=== PATIENT | female | born 1945 | race American Indian/Alaskan Native ===

== ENCOUNTER 2016-10-08 15:34 | Emergency (ER) | payer MEDICARE, BC ==
[2016-10-08 15:40] VITALS: BP 139/75
[2016-10-08] MEDS ORDERED: Codeine/Promethazine 10-6.25 MG/5 ML Syrup 5 ML UD Cup PO ONE (15:55)
[2016-10-08] MEDS ORDERED: predniSONE 20 MG Tab PO ONE (15:56)
--- NOTE | 2016-10-08 16:17 | EDM.PDOC ---
Scribed by Nena Cali 10/08/16 1610 for Geraldo Peralta MD ED HPI ENT - General Chief Complaint: ENT Problem Stated Complaint: cold [id number] Time Seen by Provider: 10/08/16 15:50 Source of Information: Reports: Patient, RN, RN notes reviewed History Limitations: Reports: No limitations - History of Present Illness INITIAL COMMENTS - FREE TEXT/NARRATIVE: Patient presents with 3 day history of cough. She states that she was gardening and developed symptoms afterwards. She took some allergy medication over-the- counter and some Aleve. Denies any fevers. No respiratory history of COPD or asthma. Severity: mild Improves with: Reports: None Worsens with: Reports: None Associated Symptoms: Reports: no other symptoms - Related Data Allergies/ADRs: Allergies Allergy/AdvReac Type Severity Reaction Status Date / Time acetaminophen [From Percocet] Allergy Cannot Verified 10/08/16 15:40 Remember oxycodone HCl [From Percocet] Allergy Cannot Verified 10/08/16 15:40 Remember Penicillins Allergy Cannot Verified 10/08/16 15:40 Remember Home Meds: Home Meds Aspirin [Ecotrin] 81 mg PO DAILY 02/03/16 [History] Calcium Carbonate/Vitamin D3 [Oyster Shell 500-Vit D3 200 Tb] 1 tab PO DAILY 06/19 [History] DULoxetine [Cymbalta] 60 mg PO BID 02/03/16 [History] Fish Oil/[place]-3 Fatty Acids [Fish Oil 1,000 MG] 1 gr PO DAILY 02/03/16 [History ] QUEtiapine Fumarate [Quetiapine Fumarate] 25 mg PO BEDTIME 02/03/16 [History] clonazePAM [Clonazepam] 0.5 mg PO PRN 02/03/16 [History] levETIRAcetam [Keppra] 250 mg PO BID 02/03/16 [History] Past Medical History HEENT History: Reports: Impaired vision Cardiovascular History: Reports: None Respiratory History: Reports: None Gastrointestinal History: Reports: Cholelithiasis Genitourinary History: Reports: None 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 Musculoskeletal History: Reports: None Other Musculoskeletal History: repair of broken left patella, collar bone repair , right hand fracture Neurological History: Reports: None Other Neuro History: Cranial shunt for 23 years Psychiatric History: Reports: None Endocrine/Metabolic History: Reports: None Hematologic History: Reports: None Immunologic History: Reports: None Oncologic (Cancer) History: Reports: None Dermatologic History: Reports: None - Infectious Disease History Infectious Disease History: Reports: None - Past Surgical History Head Surgeries/Procedures: Reports: None, Shunt Social & Family History - Family History Family Medical History: Noncontributory - Tobacco Use Smoking Status *Q: Former Smoker Used Tobacco, but Quit: Yes Month Tobacco Last Used: ? Second Hand Smoke Exposure: No - Caffeine Use Caffeine Use: Reports: Coffee, Tea - Alcohol Use Number of Drinks Per Day: 1 - Recreational Drug Use Recreational Drug Use: No - Living Situation & Occupation Living situation: Reports: , alone Occupation: employed ED ROS ENT - Review of Systems Review Of Systems: ROS reveals no pertinent complaints other than HPI. ED EXAM, ENT - Physical Exam Exam: See Below Exam Limited By: No limitations General Appearance: alert, WD/WN, no apparent distress Eye Exam: bilateral eye: normal inspection Ears: normal external exam, normal canal, hearing grossly normal, normal TMs Nose: normal inspection, normal mucousa, no blood Mouth/Throat: Normal inspection, Normal gums, Normal lips, Normal oropharynx, Normal teeth Head: atraumatic, normocephalic Neck: normal inspection, supple, non-tender, full range of motion Respiratory/Chest: other (cough with clear lung sounds.) Cardiovascular: normal peripheral pulses, regular rate, rhythm, no edema, no gallop, no JVD, no murmur, no rub GI/Abdominal: soft, non tender Back: normal inspection, full range of motion Extremities: normal inspection, normal range of motion, non-tender, no pedal edema, normal capillary refill Neurological: alert, oriented, CN II-XII intact, normal cognition, normal gait, normal reflexes, no motor/sensory deficits Psychiatric: normal affect, normal mood Skin: Warm, Dry, Intact, Normal color, No rash Lymphatic: no adenopathy Course - Vital Signs Last Recorded V/S: Last Vital Signs Temp 36.3 C 10/08/16 15:38 Pulse 71 10/08/16 15:38 Resp 16 10/08/16 15:38 BP 139/75 10/08/16 15:38 Pulse Ox 97 10/08/16 15:38 - Orders/Labs/Meds Meds: Medications Discontinued Medications Generic Name Dose Route Start Last Admin Trade Name Eric PRN Reason Stop Dose Admin Prednisone 40 mg 10/08/16 15:56 10/08/16 16:00 Prednisone PO 10/08/16 15:57 40 mg ONETIME ONE Administration Promethazine HCl/Codeine 5 ml 10/08/16 15:55 10/08/16 16:01 Phenergan With Codeine PO 10/08/16 15:56 Not Given ONETIME ONE Departure - Departure Time of Disposition: 16:08 Disposition: Home, Self-Care 01 Condition: good Clinical Impression: Bronchitis Instructions: Acute Bronchitis, [id number] Forms: ED Department Discharge Additional Instructions: Prednisone 40mg. per day for a total of 5 days. [id number] cough medication, Delsym 12 hour. If symptoms persist after a total of 10 days of symptoms, call PCP. No antibiotics at this time. This was discussed with the patient. Patient in agreement with plan. I have read and agree with the documentation that has been completed regarding this visit. By signing this record, I attest that the documentation was completed in my physical presence and is an accurate record of the encounter.
== END 2016-10-08 16:11 | disposition home or self-care (01) ==
LOC: DL.ED 15:34
DX: J40 Bronchitis, not specified as acute or chronic (principal); Z88.0 Allergy status to penicillin; Z88.6 Allergy status to analgesic agent; Z79.82 Long term (current) use of aspirin; Z79.899 Other long term (current) drug therapy; Z87.891 Personal history of nicotine dependence
CPT/HCPCS: 99283; A9270

== ENCOUNTER 2017-02-10 09:37 | Emergency (ER) | payer MEDICARE, BC ==
[2017-02-10 09:51] VITALS: BP 119/86
[2017-02-10] MEDS ORDERED: Ketorolac 30 MG/ML SDV IM ONE (10:37)
--- NOTE | 2017-02-10 10:58 | EDM.PDOC ---
ED HPI GENERAL MEDICAL PROBLEM - General Chief Complaint: Lower Extremity Injury/Pain Stated Complaint: BURSITIS, HIP AND BACK Time Seen by Provider: 02/10/17 10:00 Source of Information: Reports: Patient History Limitations: Reports: No Limitations - History of Present Illness INITIAL COMMENTS - FREE TEXT/NARRATIVE: Patient presents to the ER with c/o left hip pain. She states she had a cortisone injection on SundayFeb 02. She was told it would take 2 weeks for the injection to take effect. She continues to have pain in the left hip. She has not had any new injury or falls. She denies any other pain or problems. She is unsure of what she has been taking (acetaminophen or ibuprofen). 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: Acetaminophen, NSAIDS Left Hip Pain Score (Numeric/FACES): 10 - Related Data Allergies Allergy/AdvReac Type Severity Reaction Status Date / Time acetaminophen [From Percocet] Allergy Cannot Verified 10/08/16 15:40 Remember oxycodone HCl [From Percocet] Allergy Cannot Verified 10/08/16 15:40 Remember Penicillins Allergy Cannot Verified 10/08/16 15:40 Remember Home Meds: Home Meds Aspirin [Ecotrin] 81 mg PO DAILY 02/03/16 [History] Calcium Carbonate/Vitamin D3 [Oyster Shell 500-Vit D3 200 Tb] 1 tab PO DAILY 06/19 [History] DULoxetine [Cymbalta] 60 mg PO BID 02/03/16 [History] Fish Oil/[place]-3 Fatty Acids [Fish Oil 1,000 MG] 1 gr PO DAILY 02/03/16 [History ] QUEtiapine Fumarate [Quetiapine Fumarate] 25 mg PO BEDTIME 02/03/16 [History] clonazePAM [Clonazepam] 0.5 mg PO PRN 02/03/16 [History] Past Medical History HEENT History: Reports: Impaired Vision Cardiovascular History: Reports: None Respiratory History: Reports: None Gastrointestinal History: Reports: Cholelithiasis Genitourinary History: Reports: None 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 Musculoskeletal History: Reports: None Other Musculoskeletal History: repair of broken left patella, collar bone repair , right hand fracture Neurological History: Reports: None Other Neuro History: Cranial shunt for 23 years Psychiatric History: Reports: Depression Endocrine/Metabolic History: Reports: None Hematologic History: Reports: None Immunologic History: Reports: None Oncologic (Cancer) History: Reports: None Dermatologic History: Reports: None - Infectious Disease History Infectious Disease History: Reports: None - Past Surgical History Head Surgeries/Procedures: Reports: Shunt Social & Family History - Family History Family Medical History: Noncontributory - Tobacco Use Smoking Status *Q: Former Smoker Used Tobacco, but Quit: Yes Month Tobacco Last Used: ? Second Hand Smoke Exposure: No - Caffeine Use Caffeine Use: Reports: Coffee, Tea - Alcohol Use Number of Drinks Per Day: 1 - Recreational Drug Use Recreational Drug Use: No - Living Situation & Occupation Living situation: Reports: , Alone Occupation: Employed Review of Systems - Review of Systems Review Of Systems: ROS reveals no pertinent complaints other than HPI. ED EXAM, GENERAL - Physical Exam Exam: See Below Exam Limited By: No Limitations General Appearance: Alert, WD/WN, No Apparent Distress Nose: Normal Inspection Throat/Mouth: Normal Inspection Head: Atraumatic, Normocephalic Neck: Normal Inspection Respiratory/Chest: No Respiratory Distress, Lungs Clear, Normal Breath Sounds, No Accessory Muscle Use, Chest Non-Tender Cardiovascular: Normal Peripheral Pulses, Regular Rate, Rhythm, No Edema, No Gallop, No JVD, No Murmur, No Rub Peripheral Pulses: 2+: Dorsalis Pedis (L), Dorsalis Pedis (R) GI/Abdominal: Normal Bowel Sounds, Soft, Non-Tender (Female) Exam: Deferred Rectal (Female) Exam: Deferred Back Exam: Normal Inspection, Full Range of Motion Extremities: Normal Inspection, Leg Pain, Limited Range of Motion Neurological: Alert, Oriented Psychiatric: Normal Affect, Normal Mood Skin Exam: Warm, Dry, Intact, Normal Color, No Rash Lymphatic: No Adenopathy Course - Vital Signs Last Recorded V/S: Last Vital Signs Temp 98.2 F 02/10/17 09:47 Pulse 68 02/10/17 09:47 Resp 16 02/10/17 09:47 BP 119/86 02/10/17 09:47 Pulse Ox 100 02/10/17 09:47 - Orders/Labs/Meds Orders: Active Orders 24 hr Category Date Time Status Orphenadrine [Norflex] Med 02/10/17 10:45 Active 60 mg IM Q12H Medication Orders Orphenadrine Citrate (Norflex) 60 mg IM Q12H DARREN Last Admin: 02/10/17 10:47 Dose: 60 mg Meds: Medications Generic Name Dose Route Start Last Admin Trade Name Eric PRN Reason Stop Dose Admin Orphenadrine Citrate 60 mg 02/10/17 10:45 02/10/17 10:47 Norflex IM 60 mg Q12H DARREN Administration Discontinued Medications Generic Name Dose Route Start Last Admin Trade Name Eric PRN Reason Stop Dose Admin Ketorolac Tromethamine 60 mg 02/10/17 10:37 02/10/17 10:47 Toradol IM 02/10/17 10:38 60 mg ONETIME ONE Administration Departure - Departure Time of Disposition: 10:55 Disposition: Home, Self-Care 01 Condition: Good Clinical Impression: Hip pain, chronic Qualifiers: Laterality: left Qualified Code(s): M25.552 - Pain in left hip - Discharge Information Instructions: Hip Pain Forms: ED Department Discharge Additional Instructions: Cyclobenzaprine 10mg : 1 tablet orally every 8 hours as needed for muscle spasms Diclofenac 18m tablet every 6 hours orally as needed for pain. Do NOT take IBUPROFEN while taking Diclofenac May take Tylenol (ACETAMINOPHEN) 650mg orally every 4 hours as needed for pain. Follow up with your primary care provider next week for further management. - My Orders Last 24 Hours: My Active Orders 02/10/17 10:45 Orphenadrine [Norflex] 60 mg IM Q12H - Assessment/Plan Last 24 Hours: My Active Orders 02/10/17 10:45 Orphenadrine [Norflex] 60 mg IM Q12H
== END 2017-02-10 11:00 | disposition home or self-care (01) ==
LOC: DL.ED 09:37
DX: M25.552 Pain in left hip (principal); F32.9 Major depressive disorder, single episode, unspecified; Z98.890 Other specified postprocedural states; Z98.2 Presence of cerebrospinal fluid drainage device; Z87.891 Personal history of nicotine dependence; Z79.82 Long term (current) use of aspirin; Z88.0 Allergy status to penicillin; Z88.6 Allergy status to analgesic agent
CPT/HCPCS: 96372; 99283; J1885; J2360

== ENCOUNTER 2017-02-15 23:16 | Emergency (ER) | payer MEDICARE, BC ==
[2017-02-15] MEDS ORDERED: Acetaminophen/HYDROcodone 325-10 MG Tab PO ONE (23:17)
--- NOTE | 2017-02-15 23:58 | EDM.PDOC ---
ED HPI GENERAL MEDICAL PROBLEM - General Chief Complaint: Lower Extremity Injury/Pain Stated Complaint: HIP PAIN THRU LEG Time Seen by Provider: 02/15/17 23:50 Source of Information: Reports: Patient History Limitations: Reports: No Limitations - History of Present Illness INITIAL COMMENTS - FREE TEXT/NARRATIVE: increasing and different pain to left hip. Pain started 4 weeks ago after working in yard on uneven hilly ground. No other injury noted. Pain initially diagnosed as bursitits and given steroid injectio 2 weeks ago, has not helped, pain worsening today rates 30/10. unable to sleep. Was seen in clinic today and given zanaflex and mobic. Describes pain as being different more in groin and radiation down thigh and knee, worse with movment. Onset: Other (one month ) Left Hip Pain Score (Numeric/FACES): 10 - Related Data Allergies Allergy/AdvReac Type Severity Reaction Status Date / Time acetaminophen [From Percocet] Allergy Cannot Verified 02/15/17 23:26 Remember oxycodone HCl [From Percocet] Allergy Cannot Verified 02/15/17 23:26 Remember Penicillins Allergy Cannot Verified 02/15/17 23:26 Remember propoxyphene Allergy Cannot Verified 02/15/17 23:26 Remember Home Meds: Home Meds Aspirin [Ecotrin] 81 mg PO DAILY 02/03/16 [History] Calcium Carbonate/Vitamin D3 [Oyster Shell 500-Vit D3 200 Tb] 1 tab PO DAILY 06/19 [History] DULoxetine [Cymbalta] 60 mg PO DAILY 02/03/16 [History] Fish Oil/[place]-3 Fatty Acids [Fish Oil 1,000 MG] 1 g PO DAILY 02/03/16 [History] QUEtiapine Fumarate [Quetiapine Fumarate] 25 mg PO BID 02/03/16 [History] Acetaminophen 500 mg PO BID PRN 02/15/17 [History] Cholecalciferol (Vitamin D3) [Vitamin D] 2,000 unit PO DAILY 02/15/17 [History] Clindamycin HCl [Cleocin] 150 mg PO ASDIRECTED 02/15/17 [History] Cyanocobalamin (Vitamin B-12) [Vitamin B-12] 1,000 mcg PO DAILY 02/15/17 [ History] Ferrous Sulfate 325 mg PO BID 02/15/17 [History] Green Tea [place] Extract [Green Tea] 2 tab PO DAILY 02/15/17 [History] Lactulose 15 ml PO DAILY PRN 02/15/17 [History] Meloxicam [Mobic] 7.5 mg PO BID 02/15/17 [History] Multivitamin [Onl-Yefein-Nhxrj] 1 each PO DAILY 02/15/17 [History] tiZANidine [Zanaflex] 4 mg PO TID 02/15/17 [History] Past Medical History HEENT History: Reports: Impaired Vision Cardiovascular History: Reports: None Respiratory History: Reports: None Gastrointestinal History: Reports: Cholelithiasis, Chronic Constipation Genitourinary History: Reports: None 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 Musculoskeletal History: Reports: Fibromyalgia, Other (See Below) Other Musculoskeletal History: repair of broken left patella, collar bone repair , right hand fracture Neurological History: Reports: Other (See Below) Other Neuro History: Cranial shunt Psychiatric History: Reports: Depression Endocrine/Metabolic History: Reports: None Hematologic History: Reports: None Immunologic History: Reports: None Oncologic (Cancer) History: Reports: None Dermatologic History: Reports: None - Infectious Disease History Infectious Disease History: Reports: Chicken Pox - Past Surgical History Head Surgeries/Procedures: Reports: Shunt Cardiovascular Surgical History: Reports: None Respiratory Surgical History: Reports: None Female Surgical History: Reports: None Social & Family History - Family History Family Medical History: Noncontributory - Tobacco Use Smoking Status *Q: Former Smoker Used Tobacco, but Quit: Yes Month Tobacco Last Used: 1984 Second Hand Smoke Exposure: No - Caffeine Use Caffeine Use: Reports: Coffee, Soda, Tea - Alcohol Use Number of Drinks Per Day: 1 - Recreational Drug Use Recreational Drug Use: No - Living Situation & Occupation Living situation: Reports: , Alone Occupation: Employed Review of Systems - Review of Systems Review Of Systems: ROS reveals no pertinent complaints other than HPI. ED EXAM, GENERAL - Physical Exam Exam: See Below Exam Limited By: No Limitations General Appearance: Alert, Moderate Distress Eye Exam: Bilateral Eye: EOMI, PERRL Ears: Normal External Exam Nose: Normal Inspection Throat/Mouth: Normal Inspection, Normal Lips Neck: Normal Inspection, Full Range of Motion Respiratory/Chest: No Respiratory Distress, Lungs Clear, Normal Breath Sounds Cardiovascular: Normal Peripheral Pulses, Regular Rate, Rhythm GI/Abdominal: Normal Bowel Sounds, Soft Back Exam: Normal Inspection. No: CVA Tenderness (L), CVA Tenderness (R), Decreased Range of Motion Extremities: No Pedal Edema, Leg Pain (left hip with groin and buttock pain, with movment, tender with palpation.). No: Normal Range of Motion, Pedal Edema Neurological: Alert, Oriented, Normal Cognition. No: Normal Gait (ambulate with cane) Psychiatric: Anxious Skin Exam: Warm, Dry, Intact, Normal Color Course - Vital Signs Last Recorded V/S: Last Vital Signs Temp 96.9 F 02/15/17 23:29 Pulse 65 02/16/17 00:24 Resp 16 02/16/17 00:24 BP 143/78 H 02/16/17 00:24 Pulse Ox 99 02/16/17 00:24 - Orders/Labs/Meds Orders: Active Orders 24 hr Category Date Time Status Ondansetron [Zofran ODT] Med 02/16/17 00:26 Active 4 mg PO ONETIME PRN Medication Orders Ondansetron HCl (Zofran Odt) 4 mg PO ONETIME PRN PRN Reason: nausea Stop: 02/16/17 02:30 Meds: Medications Generic Name Dose Route Start Last Admin Trade Name Freq PRN Reason Stop Dose Admin Ondansetron HCl 4 mg 02/16/17 00:26 Zofran Odt PO 02/16/17 02:30 ONETIME PRN nausea Discontinued Medications Generic Name Dose Route Start Last Admin Trade Name Freq PRN Reason Stop Dose Admin Hydrocodone Bitart/Acetaminophen 1 tab 02/16/17 00:17 02/16/17 00:22 [place] 325-10 Mg PO 02/16/17 00:18 1 tab ONETIME ONE Administration Morphine Sulfate 2 mg 02/16/17 01:11 Morphine IM 02/16/17 01:12 ONETIME ONE - Radiology Interpretation Free Text/Narrative:: Xray knee negative CT pelvis, no hip fx, bilateral osteoarthritis greater on left. Departure - Departure Time of Disposition: 01:15 Disposition: Home, Self-Care 01 Condition: Fair Clinical Impression: Left hip pain - Discharge Information Instructions: Hip Pain Forms: ED Department Discharge Additional Instructions: follow up with primary care in am continue with home medications hydrocodone 10/325 one every 6 hours as needed for severe pain #2 - My Orders Last 24 Hours: My Active Orders 02/16/17 00:26 Ondansetron [Zofran ODT] 4 mg PO ONETIME PRN - Assessment/Plan Last 24 Hours: My Active Orders 02/16/17 00:26 Ondansetron [Zofran ODT] 4 mg PO ONETIME PRN
[2017-02-16] MEDS ORDERED: Acetaminophen/HYDROcodone 325-10 MG Tab PO ONE (00:17)
[2017-02-16] MEDS ORDERED: Ondansetron 4 MG Tab.DIS PO PRN (00:26)
[2017-02-16] MEDS ORDERED: Morphine 2 MG/ML Syringe IM ONE (01:11)
[2017-02-16] MEDS ORDERED: Acetaminophen/HYDROcodone 325-10 MG Tab ONE (01:22)
[2017-02-16 01:39] VITALS: BP 164/75
== END 2017-02-16 01:32 | disposition home or self-care (01) ==
LOC: DL.ED 23:16
DX: M25.552 Pain in left hip (principal); H54.7 Unspecified visual loss; F32.9 Major depressive disorder, single episode, unspecified; Z87.891 Personal history of nicotine dependence; Z88.0 Allergy status to penicillin; Z88.8 Allergy status to other drugs, medicaments and biological substances; Z88.6 Allergy status to analgesic agent; Z79.82 Long term (current) use of aspirin; Z79.899 Other long term (current) drug therapy
CPT/HCPCS: 72192; 73560; 96372; 99284; A9270; J2270

== ENCOUNTER 2017-02-18 08:32 | Emergency (ER) | payer MEDICARE, BC ==
[2017-02-18 08:47] VITALS: BP 132/73
[2017-02-18] MEDS ORDERED: HYDROmorphone 1 MG/ML Syringe IM ONE (09:08)
--- NOTE | 2017-02-18 09:11 | EDM.PDOC ---
ED HPI GENERAL MEDICAL PROBLEM - General Chief Complaint: Lower Extremity Injury/Pain Stated Complaint: THROBBING PAIN 3RD VISIT Time Seen by Provider: 02/18/17 09:08 Source of Information: Reports: Patient History Limitations: Reports: No Limitations - History of Present Illness INITIAL COMMENTS - FREE TEXT/NARRATIVE: 71 yo white female c/o left side hip pain. Pt. seen in this ED 02/15/[address] of hips show Bilat DJD worse on left. Pt. states the Mobic and Muscle relaxants not helping. Onset Date: 02/13/17 Onset Time: 14:00 Duration: Day(s): Location: Reports: Lower Extremity, Left Quality: Reports: Ache Improves with: Reports: None Worsens with: Reports: None Context: Reports: Other (arthritis) Associated Symptoms: Reports: No Other Symptoms Left Leg Pain Score (Numeric/FACES): 10 - Related Data Allergies Allergy/AdvReac Type Severity Reaction Status Date / Time acetaminophen [From Percocet] Allergy Cannot Verified 02/15/17 23:26 Remember oxycodone HCl [From Percocet] Allergy Cannot Verified 02/18/17 08:47 Remember Penicillins Allergy Cannot Verified 02/18/17 08:47 Remember propoxyphene Allergy Cannot Verified 02/18/17 08:47 Remember Home Meds: Home Meds Aspirin [Ecotrin] 81 mg PO DAILY 02/03/16 [History] Calcium Carbonate/Vitamin D3 [Oyster Shell 500-Vit D3 200 Tb] 1 tab PO DAILY 06/19 [History] DULoxetine [Cymbalta] 60 mg PO DAILY 02/03/16 [History] Fish Oil/[place]-3 Fatty Acids [Fish Oil 1,000 MG] 1 g PO DAILY 02/03/16 [History] QUEtiapine Fumarate [Quetiapine Fumarate] 25 mg PO BID 02/03/16 [History] Acetaminophen 500 mg PO BID PRN 02/15/17 [History] Cholecalciferol (Vitamin D3) [Vitamin D] 2,000 unit PO DAILY 02/15/17 [History] Clindamycin HCl [Cleocin] 150 mg PO ASDIRECTED 02/15/17 [History] Cyanocobalamin (Vitamin B-12) [Vitamin B-12] 1,000 mcg PO DAILY 02/15/17 [ History] Ferrous Sulfate 325 mg PO BID 02/15/17 [History] Green Tea [place] Extract [Green Tea] 2 tab PO DAILY 02/15/17 [History] Lactulose 15 ml PO DAILY PRN 02/15/17 [History] Meloxicam [Mobic] 7.5 mg PO BID 02/15/17 [History] Multivitamin [Php-[place]wc[place]-Npnfq] 1 each PO DAILY 02/15/17 [History] tiZANidine [Zanaflex] 4 mg PO TID 02/15/17 [History] Past Medical History HEENT History: Reports: Impaired Vision Cardiovascular History: Reports: None Respiratory History: Reports: None Gastrointestinal History: Reports: Cholelithiasis, Chronic Constipation Genitourinary History: Reports: None 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 Musculoskeletal History: Reports: Fibromyalgia, Other (See Below) Other Musculoskeletal History: repair of broken left patella, collar bone repair , right hand fracture Neurological History: Reports: Other (See Below) Other Neuro History: Cranial shunt Psychiatric History: Reports: Depression Endocrine/Metabolic History: Reports: None Hematologic History: Reports: None Immunologic History: Reports: None Oncologic (Cancer) History: Reports: None Dermatologic History: Reports: None - Infectious Disease History Infectious Disease History: Reports: Chicken Pox - Past Surgical History Head Surgeries/Procedures: Reports: Shunt Cardiovascular Surgical History: Reports: None Respiratory Surgical History: Reports: None Female Surgical History: Reports: None Social & Family History - Family History Family Medical History: Noncontributory - Tobacco Use Smoking Status *Q: Never Smoker Used Tobacco, but Quit: Yes Month Tobacco Last Used: 1984 Second Hand Smoke Exposure: No - Caffeine Use Caffeine Use: Reports: Coffee, Tea - Alcohol Use Number of Drinks Per Day: 1 - Recreational Drug Use Recreational Drug Use: No - Living Situation & Occupation Living situation: Reports: , Alone Occupation: Employed Review of Systems - Review of Systems Review Of Systems: See Below Constitutional: Reports: No Symptoms Eyes: Reports: No Symptoms Ears: Reports: No Symptoms Nose: Reports: No Symptoms Mouth/Throat: Reports: No Symptoms Respiratory: Reports: No Symptoms Cardiovascular: Reports: No Symptoms GI/Abdominal: Reports: No Symptoms Genitourinary: Reports: No Symptoms Musculoskeletal: Reports: Joint Pain (left hip) Skin: Reports: No Symptoms Neurological: Reports: No Symptoms Psychiatric: Reports: No Symptoms ED EXAM, GENERAL - Physical Exam Exam: See Below Exam Limited By: No Limitations General Appearance: Alert, WD/WN, No Apparent Distress Eye Exam: Bilateral Eye: PERRL Ears: Normal External Exam Nose: Normal Inspection Throat/Mouth: Normal Inspection Head: Atraumatic Neck: Normal Inspection, Tender Lateral Respiratory/Chest: Lungs Clear Cardiovascular: Normal Peripheral Pulses GI/Abdominal: Normal Bowel Sounds, Soft Back Exam: Normal Inspection, Full Range of Motion Extremities: Other (left hip tenderness) Neurological: Alert, Oriented, CN II-XII Intact Psychiatric: Normal Affect, Normal Mood Skin Exam: Warm, Dry, Intact Lymphatic: No Adenopathy Course - Vital Signs Last Recorded V/S: Last Vital Signs Temp 35.8 C 02/18/17 08:37 Pulse 81 02/18/17 08:37 Resp 20 02/18/17 08:37 BP 132/73 02/18/17 08:37 Pulse Ox 100 02/18/17 08:37 Departure - Departure Time of Disposition: 09:14 Disposition: Home, Self-Care 01 Condition: Good Clinical Impression: Degenerative joint disease (DJD) of hip Qualifiers: Osteoarthritis type: primary Laterality: bilateral Qualified Code(s): M16.0 - Bilateral primary osteoarthritis of hip - Discharge Information Instructions: Hip Pain Additional Instructions: Rest Moist Heat to hips TID X 15 mins. Take pain medication as prescribed: TRAMADOL 50mg TID # 15 Continue w/ present medication F/U w/ PCP for re-evaluation and possible Orthopedic Evaluation.
== END 2017-02-18 09:40 | disposition home or self-care (01) ==
LOC: DL.ED 08:32
DX: M16.0 Bilateral primary osteoarthritis of hip (principal); F32.9 Major depressive disorder, single episode, unspecified; Z87.891 Personal history of nicotine dependence; Z98.890 Other specified postprocedural states; Z79.899 Other long term (current) drug therapy; Z79.82 Long term (current) use of aspirin; Z88.0 Allergy status to penicillin; Z88.6 Allergy status to analgesic agent; Z88.8 Allergy status to other drugs, medicaments and biological substances
CPT/HCPCS: 96372; 99283; J1170

== ENCOUNTER 2017-03-04 15:02 | Emergency (ER) | payer MEDICARE, BC ==
[2017-03-04 15:12] VITALS: BP 181/74
[2017-03-04] MEDS ORDERED: Sodium Chloride 0.9% 10 ML Syringe FLUSH PRN (15:24)
[2017-03-04 16:07] LABS: CHLORIDE,CL 104 mmol/L (101-111); SODIUM,NA 141 mmol/L (135-145)
--- NOTE | 2017-03-04 17:15 | EDM.PDOC ---
ED HPI GENERAL MEDICAL PROBLEM - General Chief Complaint: Neurological Problem Stated Complaint: EYES ARE DILATED, CONFUSED, FELL TODAY HAS A SHUNT Time Seen by Provider: 03/04/17 15:11 Source of Information: Reports: Family, RN, RN Notes Reviewed History Limitations: Reports: Altered Mental Status - History of Present Illness INITIAL COMMENTS - FREE TEXT/NARRATIVE: Patient presents to the ER with family. Family states she had an MRI on Sunday at [facility] in [place] for a bulging disc. Family states her existing shunt was checked by a neurosurgeon prior to discharge on Sunday, who stated the shunt was ok. Family reports she has progressively declining mentally throughout the weekend. states she has been quite weak and her short term memory has been declining. He states she has had some falls, once into the bathtub where the water inadvertently got turned on and the drain closed. The came into the house and found her in the tub filled with water. Patient states she thinks it is December. Family states they feel her shunt is occluded. Onset: Gradual Onset Date: 03/03/17 Associated Symptoms: Reports: Confusion - Related Data Allergies Allergy/AdvReac Type Severity Reaction Status Date / Time acetaminophen [From Percocet] Allergy Cannot Verified 02/15/17 23:26 Remember oxycodone HCl [From Percocet] Allergy Cannot Verified 02/18/17 08:47 Remember Penicillins Allergy Cannot Verified 02/18/17 08:47 Remember propoxyphene Allergy Cannot Verified 02/18/17 08:47 Remember Home Meds: Home Meds Aspirin [Ecotrin] 81 mg PO DAILY 02/03/16 [History] Calcium Carbonate/Vitamin D3 [Oyster Shell 500-Vit D3 200 Tb] 1 tab PO DAILY 06/19 [History] DULoxetine [Cymbalta] 60 mg PO DAILY 02/03/16 [History] Fish Oil/[place]-3 Fatty Acids [Fish Oil 1,000 MG] 1 g PO DAILY 02/03/16 [History] Acetaminophen 500 mg PO BID PRN 02/15/17 [History] Cholecalciferol (Vitamin D3) [Vitamin D] 2,000 unit PO DAILY 02/15/17 [History] Cyanocobalamin (Vitamin B-12) [Vitamin B-12] 1,000 mcg PO DAILY 02/15/17 [ History] Ferrous Sulfate 45 mg PO BID 02/15/17 [History] Green Tea [place] Extract [Green Tea] 2 tab PO DAILY 02/15/17 [History] Lactulose 15 ml PO DAILY PRN 02/15/17 [History] Meloxicam [Mobic] 7.5 mg PO BID 02/15/17 [History] Multivitamin [Ccz-Tkxsbq-Phhdy] 1 each PO DAILY 02/15/17 [History] tiZANidine [Zanaflex] 4 mg PO TID 02/15/17 [History] O[place]-3 Acid Ethyl Esters 1 cap PO DAILY 03/04/17 [History] Turmeric Root Extract [Turmeric] 1 tab PO DAILY 03/04/17 [History] Past Medical History HEENT History: Reports: Impaired Vision Cardiovascular History: Reports: None Respiratory History: Reports: None Gastrointestinal History: Reports: Cholelithiasis, Chronic Constipation Genitourinary History: Reports: None 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 Musculoskeletal History: Reports: Fibromyalgia, Other (See Below) Other Musculoskeletal History: repair of broken left patella, collar bone repair , right hand fracture Neurological History: Reports: Migraines, Other (See Below) Other Neuro History: Cranial shunt Psychiatric History: Reports: Depression Endocrine/Metabolic History: Reports: None Hematologic History: Reports: None Immunologic History: Reports: None Oncologic (Cancer) History: Reports: None Dermatologic History: Reports: None - Infectious Disease History Infectious Disease History: Reports: Chicken Pox - Past Surgical History Head Surgeries/Procedures: Reports: Shunt Cardiovascular Surgical History: Reports: None Respiratory Surgical History: Reports: None Female Surgical History: Reports: None Social & Family History - Family History Family Medical History: Noncontributory - Tobacco Use Smoking Status *Q: Never Smoker Used Tobacco, but Quit: Yes Month Tobacco Last Used: 1984 Second Hand Smoke Exposure: No - Caffeine Use Caffeine Use: Reports: None - Alcohol Use Number of Drinks Per Day: 1 - Recreational Drug Use Recreational Drug Use: No - Living Situation & Occupation Living situation: Reports: , Alone Occupation: Employed ED ROS GENERAL - Review of Systems Review Of Systems: ROS reveals no pertinent complaints other than HPI. ED EXAM, NEURO - Physical Exam Exam: See Below Exam Limited By: Altered Mental Status General Appearance: Alert, No Apparent Distress Eye Exam: Bilateral Eye: Normal Inspection, PERRL Ears: Normal External Exam Nose: Normal Inspection, Normal Mucosa, No Blood Throat/Mouth: Normal Inspection, Normal Lips, Normal Teeth, Normal Gums, Normal Oropharynx, Normal Voice, No Airway Compromise Head Exam: Atraumatic, Normocephalic Neck: Normal Inspection, Supple, Non-Tender, Full Range of Motion Respiratory/Chest: No Respiratory Distress, Lungs Clear, Normal Breath Sounds, No Accessory Muscle Use, Chest Non-Tender Cardiovascular: Normal Peripheral Pulses, Regular Rate, Rhythm, No Edema, No Gallop, No JVD, No Murmur, No Rub GI/Abdominal: Normal Bowel Sounds, Soft, Non-Tender, No Organomegaly, No Distention, No Abnormal Bruit, No Mass, Pelvis Stable (Female) Exam: Deferred Rectal (Female) Exam: Deferred Neurological: Alert Back Exam: Normal Inspection Extremities: Normal Inspection, No Pedal Edema, Normal Capillary Refill Psychiatric: Flat Affect Skin Exam: Warm, Dry, Intact, Normal Color, No Rash Course - Vital Signs Last Recorded V/S: Last Vital Signs Temp 95.4 F 03/04/17 15:11 Pulse 86 03/04/17 15:11 Resp 22 H 03/04/17 15:11 BP 181/74 H 03/04/17 15:11 Pulse Ox 100 03/04/17 15:11 - Orders/Labs/Meds Orders: Active Orders 24 hr Category Date Time Status Peripheral IV Care [RC] . DIRECTED Care 03/04/17 15:24 Active Skull Less 4V [CR] Urgent Exams 03/04/17 17:14 Taken UA W/MICROSCOPIC [URIN] Stat Lab 03/04/17 16:43 Ordered Sodium Chloride 0.9% [Saline Flush] Med 03/04/17 15:24 Active 10 ml FLUSH ASDIRECTED PRN Peripheral IV Insertion Adult [OM.PC] Stat Oth 03/04/17 15:23 Ordered Medication Orders Sodium Chloride (Saline Flush) 10 ml FLUSH ASDIRECTED PRN PRN Reason: Keep Vein Open Last Admin: 03/04/17 15:40 Dose: 10 ml Labs: Laboratory Tests 03/04/17 03/04/17 03/04/17 Range/Units 15:37 15:37 15:37 WBC 8.2 (5.0-10.0) 10^3/uL RBC 4.72 (4.2-5.4) 10^6/uL Hgb 13.6 (12.0-16.0) g/dL Hct 42.7 (37.0-47.0) % MCV 90.5 D (80-100) fL MCH 28.8 (27.0-34.0) pg MCHC 31.9 L (33.0-35.0) g/dL Plt Count 369 (150-450) 10^3/uL Neut % (Auto) 81.8 H (42.2-75.2) % Lymph % (Auto) 12.8 L (20.5-50.1) % Potter % (Auto) 4.4 (2-8) % Eos % (Auto) 0.6 L (1.0-3.0) % Baso % (Auto) 0.4 (0.0-1.0) % Sodium 141 (135-145) mmol/L Potassium 3.7 (3.6-5.0) mmol/L Chloride 104 (101-111) mmol/L Carbon Dioxide 26.0 (21.0-31.0) mmol/L Anion Gap 14.7 BUN 16 (7-18) mg/dL Creatinine 0.8 (0.6-1.3) mg/dL Est Cr Clr Drug Dosing 62.13 mL/min Estimated GFR (MDRD) > 60 BUN/Creatinine Ratio 20.00 Glucose 151 H (74-105) mg/dL Calcium 9.1 (8.4-10.2) mg/dl Total Bilirubin 0.9 (0.2-1.0) mg/dL AST 30 (10-42) IU/L ALT 17 (10-60) IU/L Alkaline Phosphatase 48 (42-121) IU/L Ammonia 14 (11-35) umol/L Total Protein 6.6 L (6.7-8.2) g/dl Albumin 4.1 (3.2-5.5) g/dl Globulin 2.5 Albumin/Globulin Ratio 1.64 Meds: Medications Generic Name Dose Route Start Last Admin Trade Name Freq PRN Reason Stop Dose Admin Sodium Chloride 10 ml 03/04/17 15:24 03/04/17 15:40 Saline Flush FLUSH 10 ml ASDIRECTED PRN Administration Keep Vein Open - Re-Assessments/Exams Free Text/Narrative Re-Assessment/Exam: 03/04/17 18:10 Family states that the shunt was placed at [facility] in [place] in 2013. Family would prefer for the patient to go back there. [facility] was contacted and provider talked to Dr. Wen. Dr. Wen states that he feels the shunt is occluded or "set too high". He does feel that the patient needs to be transferred to the nearest facility as quickly as possible. An immediate call was placed to [facility] and the provider talked to Dr. Collins, Neurosurgeon. This is the neurosurgeon who physically saw the patient on Sunday03/02/17 prior to discharge from [facility]. He states that the story is not consistent, or making sense. He states this was checked on Sunday and the shunt was fine. He states the patient needs to be transferred to the neurosurgeon who originally placed the shunt. Another immediate phone call was made back to Dr. Wen at [facility] who kindly accepted the patient. He requested that the patient be flown there, as well as a shunt series xrays to be done. Flight team was notified allie and the patient will be transferred per fixed wing to [facility]. 03/04/17 18:16 Departure - Departure Time of Disposition: 17:11 Disposition: DC/Tfer to Acute Hospital 02 Condition: Critical Clinical Impression: Hydrocephalus Altered mental status Qualifiers: Altered mental status type: unspecified Qualified Code(s): R41.82 - Altered mental status, unspecified - Discharge Information Referrals: Safia Carbajal MD [Primary Care Provider] - Forms: ED Department Discharge, Interfacility Transfer EMTALA - My Orders Last 24 Hours: My Active Orders 03/04/17 15:23 Peripheral IV Insertion Adult [OM.PC] Stat 03/04/17 15:24 Peripheral IV Care [RC] . DIRECTED Sodium Chloride 0.9% [Saline Flush] 10 ml FLUSH ASDIRECTED PRN 03/04/17 16:43 UA W/MICROSCOPIC [URIN] Stat 03/04/17 17:14 Skull Less 4V [CR] Urgent - Assessment/Plan Last 24 Hours: My Active Orders 03/04/17 15:23 Peripheral IV Insertion Adult [OM.PC] Stat 03/04/17 15:24 Peripheral IV Care [RC] . DIRECTED Sodium Chloride 0.9% [Saline Flush] 10 ml FLUSH ASDIRECTED PRN 03/04/17 16:43 UA W/MICROSCOPIC [URIN] Stat 03/04/17 17:14 Skull Less 4V [CR] Urgent
== END 2017-03-04 17:55 ==
LOC: DL.ED 15:02
DX: R41.82 Altered mental status, unspecified (principal); G91.9 Hydrocephalus, unspecified; F32.9 Major depressive disorder, single episode, unspecified; Z98.2 Presence of cerebrospinal fluid drainage device; Z87.891 Personal history of nicotine dependence; Z79.82 Long term (current) use of aspirin; Z79.899 Other long term (current) drug therapy; Z88.0 Allergy status to penicillin; Z88.6 Allergy status to analgesic agent; Z88.8 Allergy status to other drugs, medicaments and biological substances
CPT/HCPCS: 36415; 70250; 70450; 80053; 82140; 85025; 99285; J7050; 99284

== ENCOUNTER 2017-03-10 03:43 | Emergency (ER) | payer MEDICARE, BC ==
[2017-03-10 04:23] VITALS: BP 104/46
[2017-03-10] MEDS ORDERED: Ondansetron 4 MG Tab.DIS PO ONE (04:47)
[2017-03-10] MEDS ORDERED: Morphine 2 MG/ML Syringe IM ONE (04:47)
--- NOTE | 2017-03-10 05:23 | EDM.PDOC ---
ED HPI GENERAL MEDICAL PROBLEM - General Chief Complaint: Back Pain or Injury Stated Complaint: BACK PAIN? Time Seen by Provider: 03/10/17 04:00 Source of Information: Reports: Patient, Family History Limitations: Reports: No Limitations - History of Present Illness INITIAL COMMENTS - FREE TEXT/NARRATIVE: Ed via wheelchair with complaint of severe back pain unrelieved with hydrocodone. Admits increased back pain over past month and has appointment end of month for consultation with neurosurgeon today twisted getting out of shower and increased discomfort in low back and now to left groin. No numbess or tingling sensation. Feels like back is going to fold in half. No bowel or bladder incontinence. Left Lower Back Pain Score (Numeric/FACES): 5 - Related Data Allergies Allergy/AdvReac Type Severity Reaction Status Date / Time acetaminophen [From Percocet] Allergy Cannot Verified 03/10/17 04:04 Remember oxycodone HCl [From Percocet] Allergy Cannot Verified 03/10/17 04:04 Remember Penicillins Allergy Cannot Verified 03/10/17 04:04 Remember propoxyphene Allergy Cannot Verified 03/10/17 04:04 Remember Home Meds: Home Meds Aspirin [Ecotrin] 81 mg PO DAILY 02/03/16 [History] Calcium Carbonate/Vitamin D3 [Oyster Shell 500-Vit D3 200 Tb] 1 tab PO DAILY 06/19 [History] DULoxetine [Cymbalta] 60 mg PO DAILY 02/03/16 [History] Fish Oil/[place]-3 Fatty Acids [Fish Oil 1,000 MG] 1 g PO DAILY 02/03/16 [History] Cholecalciferol (Vitamin D3) [Vitamin D] 2,000 unit PO DAILY 02/15/17 [History] Cyanocobalamin (Vitamin B-12) [Vitamin B-12] 1,000 mcg PO DAILY 02/15/17 [ History] Ferrous Sulfate 45 mg PO BID 02/15/17 [History] Green Tea [place] Extract [Green Tea] 2 tab PO DAILY 02/15/17 [History] Lactulose 15 ml PO DAILY PRN 02/15/17 [History] Meloxicam [Mobic] 7.5 mg PO BID 02/15/17 [History] Multivitamin [Ooi-Qxwleq-Zidrg] 1 each PO DAILY 02/15/17 [History] tiZANidine [Zanaflex] 4 mg PO TID 02/15/17 [History] [place]-3 Acid Ethyl Esters 1 cap PO DAILY 03/04/17 [History] Turmeric Root Extract [Turmeric] 1 tab PO DAILY 03/04/17 [History] Hydrocodone/Acetaminophen [Hydrocodon-Acetaminophen 5-325] 1 tab PO ASDIRECTED 03/10/17 [History] Past Medical History HEENT History: Reports: Impaired Vision Cardiovascular History: Reports: None Respiratory History: Reports: None Gastrointestinal History: Reports: Cholelithiasis, Chronic Constipation Genitourinary History: Reports: None, UTI, 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, Musculoskeletal History: Reports: Fibromyalgia, Other (See Below) Other Musculoskeletal History: repair of broken left patella, collar bone repair , right hand fracture Neurological History: Reports: Migraines, Other (See Below) Other Neuro History: Cranial shunt Psychiatric History: Reports: Anxiety, Depression Endocrine/Metabolic History: Reports: None Hematologic History: Reports: None Immunologic History: Reports: None Oncologic (Cancer) History: Reports: None Dermatologic History: Reports: None - Infectious Disease History Infectious Disease History: Reports: Chicken Pox - Past Surgical History Head Surgeries/Procedures: Reports: Shunt Cardiovascular Surgical History: Reports: None Respiratory Surgical History: Reports: None GI Surgical History: Reports: Appendectomy Female Surgical History: Reports: None Social & Family History - Family History Family Medical History: Noncontributory - Tobacco Use Smoking Status *Q: Former Smoker Used Tobacco, but Quit: Yes Month Tobacco Last Used: oct. Second Hand Smoke Exposure: No - Caffeine Use Caffeine Use: Reports: Coffee, Soda, Tea - Alcohol Use Number of Drinks Per Day: 1 - Recreational Drug Use Recreational Drug Use: No - Living Situation & Occupation Living situation: Reports: , Alone Occupation: Employed ED ROS GENERAL - Review of Systems Review Of Systems: ROS reveals no pertinent complaints other than HPI. Constitutional: Reports: No Symptoms HEENT: Reports: No Symptoms Respiratory: Reports: No Symptoms Cardiovascular: Reports: No Symptoms GI/Abdominal: Reports: No Symptoms : Reports: No Symptoms Musculoskeletal: Reports: Back Pain, Leg Pain (left) Skin: Reports: No Symptoms Psychiatric: Reports: Anxiety ED EXAM,LOWER BACK PAIN/INJURY - Physical Exam Exam: See Below Exam Limited By: No Limitations General Appearance: Alert, Moderate Distress Eye Exam: Bilateral Eye: EOMI Ears: Normal External Exam Nose: Normal Inspection Throat/Mouth: Normal Inspection Head: Atraumatic, Normocephalic Neck: Normal Inspection, Full Range of Motion Respiratory/Chest: No Respiratory Distress, Lungs Clear, Normal Breath Sounds Cardiovascular: Normal Peripheral Pulses, Regular Rate, Rhythm, No Edema GI/Abdominal: Normal Bowel Sounds, Soft, Non-Tender Extremities: Normal Inspection, Normal Range of Motion (slow guarded lower extremities. ) Course - Vital Signs Last Recorded V/S: Last Vital Signs Temp 97 F 03/10/17 03:52 Pulse 76 03/10/17 03:52 Resp 18 03/10/17 03:52 BP 104/46 L 03/10/17 04:22 Pulse Ox 100 03/10/17 03:52 - Orders/Labs/Meds Meds: Medications Discontinued Medications Generic Name Dose Route Start Last Admin Trade Name Eric PRN Reason Stop Dose Admin Morphine Sulfate 2 mg 03/10/17 04:47 03/10/17 04:56 Morphine IM 03/10/17 04:48 2 mg ONETIME ONE Administration Ondansetron HCl 4 mg 03/10/17 04:47 03/10/17 04:58 Zofran Odt PO 03/10/17 04:48 4 mg ONETIME ONE Administration - Re-Assessments/Exams Free Text/Narrative Re-Assessment/Exam: Reported to Nurse pain mostly gone almost immediaelty after injection, Request to be up in wheel chair and questions when she can go home. Departure - Departure Time of Disposition: 05:14 Disposition: Home, Self-Care 01 Condition: Fair Clinical Impression: Low back pain Qualifiers: Chronicity: unspecified Back pain laterality: left Sciatica presence: with sciatica Sciatica laterality: sciatica of left side Qualified Code(s): M54.42 - Lumbago with sciatica, left side - Discharge Information Instructions: Back Pain, Adult, [id number] Referrals: Reina Jimenez MD [Primary Care Provider] - Forms: ED Department Discharge Additional Instructions: rest follow up with primary care on Sunday continue home medications
== END 2017-03-10 05:28 | disposition home or self-care (01) ==
LOC: DL.ED 03:43
DX: M54.42 Lumbago with sciatica, left side (principal); Z87.891 Personal history of nicotine dependence; F32.9 Major depressive disorder, single episode, unspecified; Z87.440 Personal history of urinary (tract) infections; Z90.49 Acquired absence of other specified parts of digestive tract; Z98.2 Presence of cerebrospinal fluid drainage device; Z79.82 Long term (current) use of aspirin; Z79.899 Other long term (current) drug therapy; Z88.0 Allergy status to penicillin; Z88.6 Allergy status to analgesic agent; Z88.8 Allergy status to other drugs, medicaments and biological substances
CPT/HCPCS: 96372; 99283; A9270; J2270

== ENCOUNTER 2018-11-17 14:09 | Emergency (ER) | payer MEDICARE, BC ==
[2018-11-17 14:17] VITALS: BP 136/67
--- NOTE | 2018-11-17 15:06 | EDM.PDOC ---
Scribed by Nena Cali 11/17/18 [id number] for Mayelin Sargent NP ED HPI GENERAL MEDICAL PROBLEM - General Chief Complaint: Eye Problems Stated Complaint: EYE INJURY Time Seen by Provider: 11/17/18 14:27 Source of Information: Reports: Patient, RN, RN Notes Reviewed History Limitations: Reports: No Limitations - History of Present Illness INITIAL COMMENTS - FREE TEXT/NARRATIVE: Patient presents to ER with complaint of hitting head on her dog's head. Patient states she was playing ball with her dog within the last half hour. Accidentally hit heads with her dog. She has a hematoma above the right eye. No loss of consciousness, dizziness or unstable gait. She has a slight headache "a little foggy" in right eye. She has a history of intracranial shunt. Onset: Today Duration: Constant Location: Reports: Head Quality: Reports: Ache Severity: Mild Improves with: Reports: None Worsens with: Reports: None Associated Symptoms: Reports: No Other Symptoms Headache Pain Score (Numeric/FACES): 2 - Related Data Allergies Allergy/AdvReac Type Severity Reaction Status Date / Time acetaminophen [From Percocet] Allergy Cannot Verified 11/17/18 14:17 Remember oxycodone HCl [From Percocet] Allergy Cannot Verified 11/17/18 14:17 Remember Penicillins Allergy Cannot Verified 11/17/18 14:17 Remember propoxyphene Allergy Cannot Verified 11/17/18 14:17 Remember Home Meds: Home Meds Aspirin [Ecotrin EC] 81 mg PO DAILY 02/03/16 [History] Calcium Carbonate/Vitamin D3 [Oyster Shell 500-Vit D3 200 Tb] 1 tab PO DAILY 06/19 [History] DULoxetine [Cymbalta] 60 mg PO DAILY 02/03/16 [History] Fish Oil/[place]-3 Fatty Acids [Fish Oil 1,000 MG] 1 g PO DAILY 02/03/16 [History] Cholecalciferol (Vitamin D3) [Vitamin D] 2,000 unit PO DAILY 02/15/17 [History] Cyanocobalamin (Vitamin B-12) [Vitamin B-12] 1,000 mcg PO DAILY 02/15/17 [ History] Ferrous Sulfate 45 mg PO BID 02/15/17 [History] Green Tea [place] Extract [Green Tea] 2 tab PO DAILY 02/15/17 [History] Lactulose 15 ml PO DAILY PRN 02/15/17 [History] Meloxicam [Mobic] 7.5 mg PO BID 02/15/17 [History] Multivitamin [Oaa-Apahml-Vklda] 1 each PO DAILY 02/15/17 [History] tiZANidine [Zanaflex] 4 mg PO TID 02/15/17 [History] [place]-3 Acid Ethyl Esters 1 cap PO DAILY 03/04/17 [History] Turmeric Root Extract [Turmeric] 1 tab PO DAILY 03/04/17 [History] Hydrocodone/Acetaminophen [Hydrocodon-Acetaminophen 5-325] 1 tab PO ASDIRECTED 03/10/17 [History] Past Medical History HEENT History: Reports: Impaired Vision Cardiovascular History: Reports: None Respiratory History: Reports: None Gastrointestinal History: Reports: Cholelithiasis, Chronic Constipation Genitourinary History: Reports: None, UTI, 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, Musculoskeletal History: Reports: Fibromyalgia, Other (See Below) Other Musculoskeletal History: repair of broken left patella, collar bone repair , right hand fracture Neurological History: Reports: Migraines, Other (See Below) Other Neuro History: Cranial shunt Psychiatric History: Reports: Anxiety, Depression Endocrine/Metabolic History: Reports: None Hematologic History: Reports: None Immunologic History: Reports: None Oncologic (Cancer) History: Reports: None Dermatologic History: Reports: None - Infectious Disease History Infectious Disease History: Reports: Chicken Pox - Past Surgical History Head Surgeries/Procedures: Reports: Shunt Cardiovascular Surgical History: Reports: None Respiratory Surgical History: Reports: None GI Surgical History: Reports: Appendectomy Female Surgical History: Reports: None Social & Family History - Family History Family Medical History: Noncontributory - Tobacco Use Smoking Status *Q: Never Smoker - Caffeine Use Caffeine Use: Reports: Coffee, Soda, Tea - Recreational Drug Use Recreational Drug Use: No - Living Situation & Occupation Living situation: Reports: , Alone Occupation: Employed ED ROS GENERAL - Review of Systems Review Of Systems: ROS reveals no pertinent complaints other than HPI. ED EXAM GENERAL W FULL EYE - Physical Exam Exam: See Below Exam Limited By: No Limitations General Appearance: Alert, WD/WN, No Apparent Distress Eye Exam: Bilateral Eye: EOMI, Normal Inspection, PERRL Ears: Normal External Exam, Normal Canal, Hearing Grossly Normal, Normal TMs Nose: Normal Inspection, Normal Mucosa, No Blood Throat/Mouth: Normal Inspection, Normal Lips, Normal Teeth, Normal Gums, Normal Oropharynx, Normal Voice, No Airway Compromise Head: Other (facial bones stable upon palpation and non-tender. ) Neck: Normal Inspection, Supple, Non-Tender, Full Range of Motion Respiratory/Chest: No Respiratory Distress, Lungs Clear, Normal Breath Sounds, No Accessory Muscle Use, Chest Non-Tender Cardiovascular: Normal Peripheral Pulses, Regular Rate, Rhythm, No Edema, No Gallop, No JVD, No Murmur, No Rub GI/Abdominal: Normal Bowel Sounds, Soft, Non-Tender, No Organomegaly, No Distention, No Abnormal Bruit, No Mass (Female) Exam: Deferred Rectal (Female) Exam: Normal Exam, Normal Rectal Tone Back Exam: Normal Inspection, Full Range of Motion, NT Extremities: Normal Inspection, Normal Range of Motion, Non-Tender, Normal Capillary Refill, No Pedal Edema Neurological: Alert, Oriented, CN II-XII Intact, Normal Cognition, Normal Gait, Normal Reflexes, No Motor/Sensory Deficits Psychiatric: Normal Affect, Normal Mood Skin Exam: Other (hematoma above right eye and swelling.) Lymphatic: No Adenopathy Course - Vital Signs Last Recorded V/S: Last Vital Signs Temp 35.9 C 11/17/18 14:13 Pulse 68 11/17/18 14:13 Resp 16 11/17/18 14:13 BP 136/67 11/17/18 14:13 Pulse Ox 100 11/17/18 14:13 - Re-Assessments/Exams Free Text/Narrative Re-Assessment/Exam: 11/17/18 14:36 Pt states she has an intracranial shunt and will not have xrays, CT done here, they must be done in [place] as the shunt has to be dialed in to a certain number , and she does not want to go to [place]. Discussed a maxillofacial CT with the patient to determine fracture of bones. Told her the bones are stable upon palpation. She denies tenderness, except right over the hematoma. Pt states if she has any worsening of symptoms she will return to the ER and a decision will be made at that time. Patient is comfortable and agreeable with this plan. Departure - Departure Time of Disposition: 14:35 Disposition: Home, Self-Care 01 Condition: Fair Clinical Impression: Hematoma - Discharge Information *PRESCRIPTION DRUG MONITORING PROGRAM REVIEWED*: No *COPY OF PRESCRIPTION DRUG MONITORING REPORT IN PATIENT MCKENZIE: No Instructions: Hematoma, [id number] Forms: ED Department Discharge Additional Instructions: Ice area as tolerated May use Tylenol as directed for pain Follow up with your primary care facility if no improvement, or worsening of condition I have read and agree with the documentation that has been completed regarding this visit. By signing this record, I attest that the documentation was completed in my physical presence and is an accurate record of the encounter.
== END 2018-11-17 14:46 | disposition home or self-care (01) ==
LOC: DL.ED 14:09
DX: S00.83XA Contusion of other part of head, initial encounter (principal); F41.9 Anxiety disorder, unspecified; F32.9 Major depressive disorder, single episode, unspecified; Z88.0 Allergy status to penicillin; Z88.6 Allergy status to analgesic agent; Z79.82 Long term (current) use of aspirin; Z79.899 Other long term (current) drug therapy; Z90.49 Acquired absence of other specified parts of digestive tract; W54.1XXA Struck by dog, initial encounter
CPT/HCPCS: 99283

== ENCOUNTER 2021-09-19 12:48 | Emergency (ER) | payer MEDICARE, BC ==
[2021-09-19 13:16] VITALS: BP 108/71; PULSE 81
[2021-09-19] MEDS ORDERED: Bacitracin Oint 1 GM U/D Packet TOP ONE (13:23)
[2021-09-19] MEDS ORDERED: Lidocaine 1% 30 ML SDV INJECT ONE (13:23)
[2021-09-19] MEDS ORDERED: Diphtheria,Pertussis(Acell),Tetanus Vaccine 0.5 ML Syringe IM ONE (13:23)
[2021-09-19] MEDS ORDERED: Lidocaine 1% 30 ML SDV ONE (14:36)
== END 2021-09-19 14:25 | disposition home or self-care (01) ==
LOC: DL.ED 12:48
DX: S61.212A Laceration without foreign body of right middle finger without damage to nail, initial encounter (principal); Z88.8 Allergy status to other drugs, medicaments and biological substances; Z88.0 Allergy status to penicillin; Z88.5 Allergy status to narcotic agent; Z79.82 Long term (current) use of aspirin; Z23 Encounter for immunization; W26.8XXA Contact with other sharp object(s), not elsewhere classified, initial encounter
CPT/HCPCS: 12001; 90471; 90715; 99282-25; 99283